=== PATIENT | female | born 1965 | race Caucasian/White ===

== ENCOUNTER → 2017-11-05 | Outpatient (CLI) | payer OTHER ==
[~2017-11-05] MED LIST: BACTRIM DS TAB1 EACH PO; CYMBALTA60 MG; DOXYCYCLINE 10100 M1 PO; NAPROSYN500 MG PO; NORCO 5-325 TA1 EACH PO; ROBAXIN500 MG PO; TOPAMAX100 MG
== END ==
LOC: M.LAB 02:51
DX: Z01.812 Encounter for preprocedural laboratory examination (principal); Z88.6 Allergy status to analgesic agent; Z90.710 Acquired absence of both cervix and uterus

== ENCOUNTER → 2018-10-06 | Outpatient (CLI) | payer OTHER ==
[~2018-10-06] MED LIST changes: +HYDROCHLOROTHIA25 M2 PO; +IBUPROFEN 200200 M1 PO
== END ==
LOC: M.MRI 16:08
DX: M17.12 Unilateral primary osteoarthritis, left knee (principal); M23.92 Unspecified internal derangement of left knee; R60.0 Localized edema

== ENCOUNTER 2018-10-27 06:51 | Inpatient (IN) | payer OTHER ==
[2018-10-15 09:29] LABS: URINE BILIRUBIN NEGATIVE (Negative); URINE BLOOD NEGATIVE (Negative); URINE CLARITY CLEAR; URINE COLOR YELLOW; URINE GLUCOSE-RANDOM NEGATIVE (Negative); URINE KETONES NEGATIVE (Negative); URINE LEUKOCYTES-REFLEX NEGATIVE (Negative); URINE NITRITE-REFLEX NEGATIVE (Negative); URINE PROTEIN NEGATIVE (Negative); URINE UROBILINOGEN 0.2 E.U./dl (0.2-1.0)
[2018-10-15 09:30] LABS: HEMATOCRIT 36.8 % (37.0-47.0); HEMOGLOBIN 11.8 gm/dL (12.0-15.0); MCH 25.9 pg (26.0-34.0); MCHC 32.1 g/dL (28.0-37.0); MCV 80.6 fL (80.0-100.0); MPV 9.9 fl. (7.2-11.1); RBC 4.57 mil/uL (4.20-5.00); RDW-CV 16.6 % (10.5-14.5); WBC 7.2 thou/uL (4.0-11.0)
[2018-10-15 09:44] LABS: INR 0.9; PROTIME 9.4 Seconds (9.20-11.50)
[2018-10-15 09:48] LABS: ALBUMIN 3.5 g/dL (3.4-5.0); CREATININE 0.7 mg/dL (0.6-1.3); POTASSIUM 3.5 mmol/L (3.5-5.1); TOTAL BILIRUBIN 0.4 mg/dL (<0.1-1.0); TOTAL PROTEIN 7.4 g/dL (6.4-8.2)
--- NOTE | 2018-10-15 17:04 | EKG ---
[place] [address] ELECTROCARDIOGRAM REPORT Name: ALEX MORIN Room: PRE IN [facility]#: [id number] Admission: Attend Phys: Silvia Carson Discharge: Date of : 69 Report #: [id number] THIS REPORT FOR: //name// [facility] Test Date: 2018-10-15 Test Time: 09:40:15 Pat Name: ALEX MORIN Department: Room: Gender: F Line Walker: : 1965 Requested By: Luis Becerril Order Number: [id number] Reading MD: Asa Cordova Measurements Intervals [place] Rate: 59 P: -10 VT: 200 QRS: -19 QRSD: 88 T: 31 QT: 438 QTc: 434 Interpretive Statements Sinus rhythm Abnormal R-wave progression, early transition Inferior infarct, old No previous ECG available for comparison Electronically Signed On 10-15-2018 17:04:37 CDT by Asa Cordova [email or web address] <ELECTRONICALLY SIGNED> By: Asa Cordova MD, [facility] 10/15/18 1704 0940 09 Asa Cordova MD, FACC /EPI
[~2018-10-27] VITALS: Ht 160 cm; Wt 112.9 kg
[2018-10-27 10:11] VITALS: BP 131/90
[2018-10-27 17:00] VITALS: BP 108/57
[2018-10-27 20:00] VITALS: BP 120/77
[2018-10-28] VITALS (8 sets, daily range): BP systolic 107–122; BP diastolic 59–67
[2018-10-28 04:29] LABS: HEMATOCRIT 34.4 % (37.0-47.0); HEMOGLOBIN 10.6 gm/dL (12.0-15.0)
[2018-10-28] MEDS ORDERED: MAGNESIUM OXID200 MG PO (07:18)
[2018-10-28] MEDS ORDERED: COLACE100 MG PO (15:44)
[2018-10-28] MEDS ORDERED: XARELTO10 MG PO (15:45)
[2018-10-28] MEDS ORDERED: PERCOCET PO (15:51)
[2018-10-28] MEDS ORDERED: METAMUCIL0.4 GM PO (15:52)
--- NOTE | 2018-10-29 23:33 | OP ---
[address] [address] OPERATIVE REPORT Name: ALEX MORINIL Room: [address] IN ..#: [id number] Admission: 10/27/18 Attend Phys: Silvia Carson Discharge: 10/28/18 Date of : 69 Report #: [id number] THIS REPORT FOR: //name// CC: Pavna Tyler DATE OF SERVICE: 10/27/2018 PREOPERATIVE DIAGNOSIS: Left knee osteoarthritis. POSTOPERATIVE DIAGNOSIS: Left knee osteoarthritis. PROCEDURE: Left total knee arthroplasty. SURGEON: Luis Becerril II, DO PRESS TENDER SMOKE SIGNAL: NILES Ashraf. ANESTHESIA: General endotracheal. ESTIMATED BLOOD LOSS: 50 mL. ANTIBIOTICS: Ancef preoperatively. DRAINS: Medium Hemovac. COMPLICATIONS: None. CONDITION: The patient is stable to recovery room. IMPLANTS: Listed in operative record and progress note. BRIEF HISTORY: The patient is seen in the preoperative area. Preoperative history and physical was performed. Site was marked, questions were answered. Risks and benefits were discussed with the patient in detail about surgery. The patient wished to proceed, assuming all risks. DESCRIPTION OF PROCEDURE: The patient was taken to the operative suite and placed supine on the operative table, given appropriate anesthesia. A well-padded tourniquet was applied to the upper thigh, which was inflated to 300 mmHg after gravity exsanguination. The operative knee was sterilely prepped and draped. Surgery began by midline incision. This was carried down through the subcutaneous tissues. A medial parapatellar arthrotomy was performed and carried down to bone. The patella was then everted and excess soft tissue removed from around the femur. Femoral cutting block was then applied, checked [facility] [address] [place] [address] OPERATIVE REPORT Name: ALEX MORIN Room: [address]#: [id number] Admission: 10/27/18 Attend Phys: Silvia Carson Discharge: 10/28/18 Date of : 69 Report #: [id number] with a drop tangela for rotational alignment, pinned in appropriate position and appropriate cuts were made. A 4-in-1 cutting block was then applied, checked for rotational alignment, pinned in appropriate position and appropriate cuts were made. The tibia was then exposed. Excess meniscus was removed. Retractor was placed along the collateral ligaments. The tibial cutting block was then applied, pinned in appropriate position, checked with a drop tangela for rotational alignment and slope and appropriate cuts were made. The tibial bone was removed. Tibial base plate was then applied, checked for rotational alignment with the drop tangela and pinned in appropriate position. The femur was then applied and box cut was reamed. This was then trialed with appropriate spacer, which showed excellent fit and fill and excellent stability of the knee through all range of motion. Patella was then reamed in appropriate fashion and sized to appropriate size. Three peg holes were drilled. It was then trialed and showed excellent flexion, extension, and excellent tracking of the patella within the groove. These trials were then removed. The tibia was punched in appropriate fashion. Bone ends were cleansed with Pulsavac irrigation and cement was mixed and applied to final implants. These were then malleted into position and held the knee in extension and compressed to allow cement to cure. After it cured, excess was removed using a [place] and osteotome. Wound was then copiously irrigated and the final spacer was malleted into position. Tourniquet was deflated. Hemostasis was obtained with electrocautery. Pain cocktail was injected. PRP gel was sprayed throughout internal aspects of the knee. Medium Hemovac drain was applied. Capsule was closed with #2 FiberWire and #1 Vicryl in [id number] fashion. Skin was closed with 2-0 Vicryl and running 3-0 Monocryl. Dermabond and sterile dressing applied. Joey wrap and PolarCare applied. The patient transported to Recovery Room in stable condition. Counts were correct throughout the procedure. <ELECTRONICALLY SIGNED> By: Luis Becerril II, DO 10/29/18 [id number] Becerril II, DO /nt
== END 2018-10-28 16:30 | disposition home health service (06) | DRG 470 ==
LOC: M.PRE → M.TBA 09:47 → M.ORTHSURG 09:47 → M.PRE 09:58 → M.ORTHSURG 16:57 → M.PRE 18:26 → M.ORTHSURG 10-28 16:30
PROVIDERS: Orthopaedic Surgery; ADMIT Internal Medicine
PROC: 0SRD0J9 Replacement of Left Knee Joint with Synthetic Substitute, Cemented, Open Approach (ICD-10-PCS; principal; 2018-10-27)
DX: M17.12 Unilateral primary osteoarthritis, left knee (principal); G43.909 Migraine, unspecified, not intractable, without status migrainosus; D64.9 Anemia, unspecified; Z90.49 Acquired absence of other specified parts of digestive tract; Z90.710 Acquired absence of both cervix and uterus; Z98.84 Bariatric surgery status; Z79.899 Other long term (current) drug therapy; Z88.5 Allergy status to narcotic agent; Z82.49 Family history of ischemic heart disease and other diseases of the circulatory system

== ENCOUNTER → 2019-11-05 | Outpatient (CLI) | payer OTHER ==
[~2019-11-05] MED LIST changes: +COLACE100 MG PO; +MAGNESIUM OXID200 MG PO; +METAMUCIL0.4 GM PO; +PERCOCET PO; +XARELTO10 MG PO
== END ==
LOC: M.LAB 08:14
PROVIDERS: ATTEND Orthopaedic Surgery
DX: Z01.812 Encounter for preprocedural laboratory examination (principal); Z11.59 Encounter for screening for other viral diseases

== ENCOUNTER → 2020-03-23 | Outpatient (CLI) | payer OTHER | LOC: M.LAB 07:55 | PROVIDERS: ATTEND Orthopaedic Surgery | DX: Z01.812 Encounter for preprocedural laboratory examination (principal); Z20.828 Contact with and (suspected) exposure to other viral communicable diseases ==

== ENCOUNTER 2020-04-01 09:14 | Emergency (ER) | payer OTHER ==
[~2020-04-01] VITALS: Ht 160 cm; Wt 104.3 kg
[2020-04-01] MEDS ORDERED: PREDNISONE 20 M20 M1 PO (10:02)
[2020-04-01] MEDS ORDERED: TRIAMCINOLONE A15 G1 TP (10:02)
[2020-04-01] MEDS ORDERED: KEFLEX500 M1 PO (10:02)
[2020-04-01 10:16] VITALS: BP 128/55
== END 2020-04-01 10:17 | disposition home or self-care (01) ==
LOC: M.ERS 09:14
DX: L25.9 Unspecified contact dermatitis, unspecified cause (principal); G43.909 Migraine, unspecified, not intractable, without status migrainosus; Z88.5 Allergy status to narcotic agent; Z90.89 Acquired absence of other organs; Z90.710 Acquired absence of both cervix and uterus; Z86.2 Personal history of diseases of the blood and blood-forming organs and certain disorders involving the immune mechanism

== ENCOUNTER 2020-10-11 17:40 | Emergency (ER) | payer OTHER ==
[~2020-10-11] VITALS: Ht 160 cm; Wt 102.1 kg
[~2020-10-11 17:40] MED LIST changes: +KEFLEX500 M1 PO; +PREDNISONE 20 M20 M1 PO; +TRIAMCINOLONE A15 G1 TP
[2020-10-11] MEDS ORDERED: PREDNISONE 20 M20 M1 PO (18:35)
[2020-10-11] MEDS ORDERED: HYDROCODON-ACE1 EAC7 PO (18:35)
[2020-10-11 18:46] VITALS: BP 110/62
== END 2020-10-11 18:47 | disposition home or self-care (01) ==
LOC: M.ERS 17:40
DX: M10.071 Idiopathic gout, right ankle and foot (principal); G43.909 Migraine, unspecified, not intractable, without status migrainosus; Z86.2 Personal history of diseases of the blood and blood-forming organs and certain disorders involving the immune mechanism; Z90.710 Acquired absence of both cervix and uterus; Z90.49 Acquired absence of other specified parts of digestive tract; Z88.5 Allergy status to narcotic agent